=== PATIENT | male | born 1965 | race Caucasian/White ===

== ENCOUNTER 2023-12-23 09:29 | Emergency (ER) | payer SELFPAY ==
[2023-12-23] VITALS (23 sets, daily range): BP systolic 153–198; BP diastolic 83–92; PULSE 44–58; RESP 14–21; TEMP 36.4; O2SAT 93–98
--- NOTE | 2023-12-23 09:49 | ECG_ITS ---
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 Measurements Intervals [place] Rate: 54 P: 66 ME: 146 QRS: 61 QRSD: 93 T: 71 QT: 424 QTc: 405 Interpretive Statements SINUS BRADYCARDIA POSSIBLE RIGHT VENTRICULAR CONDUCTION DELAY [RSR (QR) IN V1/V2] No previous ECG available for comparison Electronically Signed On 12-24-2023 8:09:56 CDT by Danilo Alexander M.D. [id number]
--- NOTE | 2023-12-23 09:56 | XRR_ITS ---
PROCEDURE INFORMATION: Exam: XR Chest Exam date and time: 12/23/2023 10:15 AM Age: 58 years old Clinical indication: Shortness of breath; Patient HX: 3-4 weeks of SOB, pain in right shoulder blade, fatigue, chest pain; Additional info: Cp TECHNIQUE: Imaging protocol: Radiologic exam of the chest. Views: 1 view. Total images: 2 COMPARISON: No relevant prior studies available. FINDINGS: Lungs: Unremarkable. No consolidation. Pleural spaces: Unremarkable. No pleural effusion. No pneumothorax. Heart/Mediastinum: Calcified lymph nodes seen in the AP window. Bones/joints: Unremarkable. XR/XR chest 1V portable [id number] IMPRESSION: No acute cardiopulmonary process.
[2023-12-23 10:05] LABS: Basophils % 0.7 %; Eosinophils # 0.2 10^3/uL (0.0-0.8); Eosinophils % 2.8 %; Hematocrit 46.5 % (37-53); Lymphocytes # 1.4 10^3/uL (0.8-4.8); Lymphocytes % 26.8 %; Mean Corpuscular HGB Conc 33.3 g/dL (30-55); Mean Corpuscular Hemoglobin 30.9 pg (27-33); Mean Corpuscular Volume 92.6 fl (82-101); Mean Platelet Volume 9.7 fL (7.4-10.4); Monocytes # 0.6 10^3/uL (0.2-0.9); Neutrophils # 3.16 10^3/uL (1.8-7.7); Neutrophils % 58.7 %; Nucleated Red Blood Cells % 0 %; Platelet Count 286 10^3/cmm (157-399); Red Blood Count 5.02 10^6/uL (3.85-5.65); Red Cell Distribution Width 12.4 % (12.1-15.1); White Blood Count 5.38 10^3/uL (3.29-11.43)
[2023-12-23 10:21] LABS: D Dimer 0.28 ug/mLFEU (0-0.59)
[2023-12-23 10:24] LABS: Troponin(5th) Baseline 9 ng/L (0-15)
--- NOTE | 2023-12-23 10:24 | ED_ITS ---
HPI - Chest Pain 2 General: Chief Complaint: Chest Pain Stated Complaint: chest pains, sob Time Seen by Provider: 12/23/23 09:55 Source: patient Mode of arrival: ambulatory Limitations: no limitations History of Present Illness: 58-year-old male who states that he been having some chest pain across his chest along with shortness of breath has been on for the last 3 weeks he does have a history of COPD states he does not have any cough or wheezing. He denies any worsening improving factors denies any pain currently. No vomiting. Associated symptoms: Reports dyspnea; Deny abdominal pain, fever(s), nausea or vomiting Review of Systems 2 Const: Denies: fever(s), chills, body aches or change in appetite Eyes: Denies: blurry vision or eye discomfort ENMT: Denies: throat pain or dental pain Card: Reports: chest pain Resp: Reports: dyspnea GI: Denies: abdominal pain, nausea, vomiting or diarrhea : Denies: dysuria Musc: Denies: neck pain or back pain Skin/Breast: Denies: rash Neuro: Denies: headache(s) PFSH ED 2 PFSH: Social History Smoking and tobacco/nicotine status: former use of tobacco/nicotine Substance/Drug Use: never Physical Exam 2 Const: COMMON NORMALS: no acute distress, patient oriented x3 and healthy appearing HENMT: COMMON NORMALS: normocephalic and atraumatic HEAD & SCALP: n ormocephalic and atraumatic Eye: COMMON NORMALS: conjunctivae normal CONJUNCTIVA: Yes conjunctivae normal Neck/C-Spine: COMMON NORMALS: full ROM and supple Chest: COMMONS NORMALS: normal inspection of the chest and normal palpation of entire chest wall Resp: COMMON NORMALS: normal respiratory effort, No retractions, No use of accessory muscles and clear to auscultation bilaterally AUSCULTATION: clear to auscultation bilaterally Cardio: COMMON NORMALS: regular rhythm and No murmurs present (Cardio) R ATE: bradycardic RHYTHM: regular rhythm Extremity: COMMON NORMALS: normal to inspection and full ROM Neuro: COMMON NORMALS: patient oriented x3, moves all extremities and no focal motor deficits Psych: COMMON NORMALS: mental status grossly normal, Normal thought process present and cooperative THOUGHT PROCESS: Normal thought process present Skin: COMMON NORMALS: no rashes or lesions noted and no wounds GENERAL SKIN EXAM: no rashes or lesions noted Course 2 Vital Signs: Vital signs: Vital Signs Temperature 97.6 F 12/23/23 09:33 Pulse Rate 48 L 12/23/23 11:45 Respiratory Rate 18 12/23/23 11:45 Blood Pressure 154/90 12/23/23 11:45 Pulse Oximetry 93 12/23/23 11:45 Oxygen Delivery Me thod Room Air 12/23/23 10:08 MDM - Chest Pain Medical Decision Making Patient presents for chest pains atypical in nature his D-dimer troponins here are normal he is stable for discharge he is follow-up with PCP return if worsening he understands agrees to plan Medical Records I reviewed the patient's medical records. Lab Data I reviewed the patient's lab results. 12/23/23 10:00 12/23/23 10:00 Radiology Impressions Chest X-Ray 12/23/23 09:56 IMPRESSION: No acute cardiopulmonary process. Laboratory Results WBC 5.38 10^3/uL (3.29-11.43) 12/23/23 10:00 RBC 5.02 10^6/uL (3.85-5.65) 12/23/23 10:00 Hgb 15.50 g/dL (11.27-16.99) 12/23/23 10:00 Hct 46.5 % (37-53) 12/23/23 10:00 MCV 92.6 fl (82-101) 12/23/23 10:00 MCH 30.9 pg (27-33) 12/23/23 10:00 MCHC 33.3 g/dL (30-55) 12/23/23 10:00 RDW 12.4 % (12.1-15.1) 12/23/23 10:00 Plt Count 286 10^3/cmm (157-399) 12/23/23 10:00 MPV 9.7 fL (7.4-10.4) 12/23/23 10:00 Neut % (Auto) 58.7 % 12/23/23 10:00 Lymph % (Auto) 26.8 % 12/23/23 10:00 [place] % (Auto) 11.0 % 12/23/23 10:00 Eos % (Auto) 2.8 % 12/23/23 10:00 Baso % (Auto) 0.7 % 12/23/23 10:00 Neut # (Auto) 3.16 10^3/uL (1.8-7.7) 12/23/23 10:00 Lymph # (Auto) 1.4 10^3/uL (0.8-4.8) 12/23/23 10:00 [place] # (Auto) 0.6 10^3/uL (0.2-0.9) 12/23/23 10:00 Eos # (Auto) 0.2 10^3/uL (0.0-0.8) 12/23/23 10:00 Baso # (Auto) 0.0 10^3/uL (0.0-0.1) 12/23/23 10:00 Nucleated RBC % (auto) 0 % 12/23/23 10:00 Nucleated RBCs # 0.0 /100WBC 12/23/23 10:00 D-Dimer 0.28 ug/mLFEU (0-0.59) 12/23/23 10:00 Sodium 137 mmol/L (136-145) 12/23/23 10:00 Potassium 4.4 mmol/L (3.5-5.1) 12/23/23 10:00 Chloride 99 mmol/L (98-107) 12/23/23 10:00 Carbon Dioxide 27 mmol/L (22-29) 12/23/23 10:00 Anion Gap 15.4 (5-19) 12/23/23 10:00 BUN 18 mg/dL (6-20) 12/23/23 10:00 Creatinine 0.9 mg/dL (0.7-1.2) 12/23/23 10:00 GFR Calculation 86.7 mL/min (90-130) L 12/23/23 10:00 Glucose 113 mg/dL (65-115) 12/23/23 10:00 Calculated Osmolality 287 mOsm/kg (285-295) 12/23/23 10:00 Calcium 9.6 mg/dL (8.5-10.5) 12/23/23 10:00 Total Bilirubin 0.6 mg/dL (0.15-1.2) 12/23/23 10:00 AST 22 U/L (0-40) 12/23/23 10:00 ALT 26 U/L (0-41) 12/23/23 10:00 Alkaline Phosphatase 56 U/L (40-130) 12/23/23 10:00 Troponin T Baseline 9 ng/L (0-15) 12/23/23 10:00 Troponin T 120 Minute 7.75 ng/L (0-15) 12/23/23 12:18 NT-Pro-B Natriuret Pep 68 pg/mL (0-125) 12/23/23 10:00 Total Protein 7.5 g/dL (6.6-8.7) 12/23/23 10:00 Albumin 4.6 g/dL (3.5-5.2) 12/23/23 10:00 Globulin 2.9 g/dL (1.3-4.6) 12/23/23 10:00 All radiology interpretation(s) finalized by discharge EKG Data EKG 1: I personally reviewed and interpreted this EKG as follows: EKG interpretation date: 12/23/23 EKG interpretation time: 09:49 Interpretation: sinus venus hr [address] or t wave abnormalities qrs 93 qtc 411 EKG 2: I personally reviewed and interpreted this EKG as follows: EKG interpretation date: 12/23/23 EKG interpretation time: 11:48 Interpretation: sinus venus hr [address] elevation qrs 98 qtc 410 Discharge Plan Discharge Patient Disposition: Home Clinical Impression: Chest pain Condition: Stable Prescriptions: No Action albuterol sulfate 90 mcg/actuation HFA aerosol inhaler 2 puff INHALATION Q4H PRN (Reason: Shortness Of Breath) Discharge Orders: Discharge ED (Routine); Ordered 12/23/23 Ordered By: Dae Baker Discharge Diet: Advance as tolerated Discharge Activity: Resume usual activity Patient Instructions: Chest Pain (ED) Coding Level of Care Code ED Immigration Judge for Gwen Carrillo
[2023-12-23 10:33] LABS: Alanine Aminotransferase 26 U/L (0-41); Albumin Level 4.6 g/dL (3.5-5.2); Alkaline Phosphatase 56 U/L (40-130); Anion Gap 15.4 (5-19); Aspartate Amino Transferase 22 U/L (0-40); Blood Urea Nitrogen 18 mg/dL (6-20); Calcium 9.6 mg/dL (8.5-10.5); Carbon Dioxide 27 mmol/L (22-29); Chloride 99 mmol/L (98-107); Creatinine Clr Calc Pharmacy 90.4151; Globulin 2.9 g/dL (1.3-4.6); Glomerular Filtration Rate 86.7 mL/min (90-130); Glucose 113 mg/dL (65-115); NT Pro B Type Natriuretic Pept 68 pg/mL (0-125); Osmolality Calculated 287 mOsm/kg (285-295); Potassium 4.4 mmol/L (3.5-5.1); Sodium 137 mmol/L (136-145); Total Bilirubin 0.6 mg/dL (0.15-1.2); Total Protein 7.5 g/dL (6.6-8.7)
[2023-12-23] MEDS: dexamethasone 10 mg/mL INJ IVP (11:06)
--- NOTE | 2023-12-23 11:48 | ECG_ITS ---
[facility] Test Date: 2023-12-23 Pat Name: Charles Virgen Department: Room: Gender: Male [employer]: : 1965 Requested By: Dae Baker Order Number: [id number] Fide MD: Danilo Alexander M.D. Measurements Intervals [place] Rate: 45 P: 70 IA: 151 QRS: 64 QRSD: 98 T: 70 QT: 457 QTc: 395 Interpretive Statements SINUS BRADYCARDIA WITH OCCASIONAL VENTRICULAR PREMATURE COMPLEXES POSSIBLE RIGHT VENTRICULAR CONDUCTION DELAY [RSR (QR) IN V1/V2] Compared to ECG 12/23/2023 09:49:22 Ventricular premature complex(es) now present Electronically Signed On 12-24-2023 8:14:36 CDT by Danilo Alexander M.D. [id number]
[2023-12-23 12:43] LABS: Troponin 5 2HR 7.75 ng/L (0-15)
[2023-12-23 12:58] LABS: Troponin 5 2HR Delta -1.25 ABS# (0-10)
== END 2023-12-23 12:56 | disposition home or self-care (01) ==
PROVIDERS: Emergency Provider Emergency Medicine
DX: R07.9 Chest pain, unspecified (principal); Z87.891 Personal history of nicotine dependence
CPT/HCPCS: 71045; 80053; 83880; 84484; 85025; 85378; 93005; 96374; 99285; J1100

== ENCOUNTER → 2024-06-14 10:25 | Outpatient (BNVA) | payer SELFPAY | PROVIDERS: PCP Family Medicine; Visit Provider Family Medicine | DX: R03.0 Elevated blood-pressure reading, without diagnosis of hypertension (principal) | CPT/HCPCS: 80053; 80061; 85025 ==